=== PATIENT | male | born 1960 | race Caucasian/White ===

== ENCOUNTER 2017-05-31 11:29 | Day surgery (SDC) | payer BC ==
[2017-05-30 09:44] VITALS: BMI 25.7
[2017-05-31 12:38] VITALS: RESP 20; TEMP 99.9
[2017-05-31] MEDS: LACTATED RINGERS 1,000 ML IV SCH ×2 (12:45→12:54)
[2017-05-31] MEDS ORDERED: LIDOCAINE 1% 20 ML VIAL (10MG/ML) FOR IV START INTRADERMA ONE (12:46)
[2017-05-31 12:56] LABS: Glucose,Whole Blood 91 mg/dL (75-99)
[2017-05-31] MEDS ORDERED: PROPOFOL 10 MG/ML 20 ML VIAL IV ONE (12:59)
[2017-05-31] MEDS ORDERED: LIDOCAINE 1% INJ 10MG/ML (20 ML MDV) ONE (12:59)
--- NOTE | 2017-05-31 13:28 | P.PCN ---
Date of Procedure: 05/31/17 Preoperative Diagnosis: Postoperative Diagnosis: Procedure(s) Performed: Procedure: Total colonoscopy. Preoperative diagnosis: Screening for neoplasia. Postoperative diagnosis: Mild diverticulosis with no evidence of acute diverticulitis, strictures, polyps or cancer. Preparation: HalfLytely prep. Sedation: Was provided by anesthesia. Brief clinical history: The patient is a 56-year-old male who is referred for this evaluation for screening for neoplasia age being his risk factor. The patient has no abdominal complaints, bleeding or anemia. No family history of colon cancer. This would be his first colonoscopy. Procedure: With the patient on his left lateral decubitus position and after informed consent and adequate sedation, the perianal area was inspected and it did not show any fissures or fistulas. There were no masses felt on digital rectal examination. The Olympus CFQ 160L video colonoscope was then inserted in the rectum in the usual fashion and advanced to the cecum. There was occasional small diverticular orifices seen in the sigmoid and around the hepatic flexure with no evidence of acute diverticulitis or strictures. No polyps or tumors were seen. I retroflexed the endoscope in the rectum before the endoscope was withdrawn. The patient tolerated the procedure well. Plan: The patient was reassured. Discussed dietary measures. He will follow up with you as planned and I recommended repeat exam in 10 years. Implants: Indications for Procedure: Operative Findings: Description of Procedure:
[2017-05-31 13:53] VITALS: BP 128/77; PULSE 74
== END 2017-05-31 14:15 | disposition home or self-care (01) ==
LOC: ORWHC2ENDO 11:29
DX: Z12.11 Encounter for screening for malignant neoplasm of colon (principal); K57.30 Diverticulosis of large intestine without perforation or abscess without bleeding; I10 Essential (primary) hypertension; E11.9 Type 2 diabetes mellitus without complications; Z79.82 Long term (current) use of aspirin; Z79.899 Other long term (current) drug therapy
CPT/HCPCS: J2001; J2704; G0121; 45378